=== PATIENT | female | born 1995 | race Caucasian/White ===

== ENCOUNTER → 2018-01-13 | Outpatient (CLI) | payer SELFPAY ==
--- NOTE | 2018-01-13 15:06 | RADIOLOGY REPORT (SQ) ---
EXAM DESCRIPTION: U/S [id number] TRNABD 1GES W/ODOP COMPLETED DATE/TIME: 01/13/2018 2:29 pm REASON FOR STUDY: ENCTR FOR SUPERVISION OF NORMAL , 1ST TRIMESTER (Z34.01) Z34.01 ENCNTR F OR SUPRVSN OF NORMAL FIRST PREG, FIRST TRIMES COMPARISON: None. TECHNIQUE: Transabdominal static and realtime grayscale images acquired of the pelvis. Additional se lected spectral and color Doppler images recorded. All images stored on PACs. bHCG: Not available CLINICAL DATES: Not available LIMITATIONS: None. FINDINGS: FETUS: Single Living intrauterine . ULTRASOUND EGA: 9 weeks 4 days ULTRASOUND ANETA: 08/14/2018 EFW: Not applicable less than 20 weeks. CRL: 2.7 cm FHR: 178 beats per minute. SURVEY: Too early to assess. AMNIOTIC FLUID: Adequate amount. PLACENTA: Developing fundus posterior. Placenta covers the internal os on today's study. Recommend repeat scanning sometime later in the 2nd trimester to evaluate for placenta previa SUBCHORIONIC BLEED: No SIZE OF BLEED: Not applicable. UTERUS: No masses. No anomalies. 10.5 x 8.4 x 10 cm in size CERVICAL LENGTH: 3.5 cm Closed. RIGHT ADNEXA: Normal ovary, 3.4 x 2.4 x 2.2 cm in size, with normal vascular flow. No adnexal free fluid. No adnexal masses. LEFT ADNEXA: Not well-visualized due to adnexal bowel gas. FREE FLUID: None. OTHER: No other significant finding. IMPRESSION: LIVING INTRAUTERINE . EGA 9 weeks 4 days. Placenta currently covers the internal cervical os. Recommend repeat scanning sometime later in the 2nd trimester to evaluate for placenta previa Trimester of : First - 0 to 13 weeks. TECHNICAL DOCUMENTATION: JOB ID: [id number] [employer]- All Rights Reserved rev Reading location - IP/workstation name: [facility]
== END ==
LOC: RAD 13:50
PROVIDERS: ATTEND Nurse Practitioner
DX: Z34.01 Encounter for supervision of normal first pregnancy, first trimester (principal)
CPT/HCPCS: 76801

== ENCOUNTER → 2018-02-23 | Outpatient (CLI) | payer SELFPAY ==
--- NOTE | 2018-02-23 14:25 | RADIOLOGY REPORT (SQ) ---
EXAM DESCRIPTION: U/S OB 14+ TRNABD 1GES W/O DOP COMPLETED DATE/TIME: 02/23/2018 2:00 pm REASON FOR STUDY: ENCTR FOR SUPERVISION OF NORMAL FIRST 2ND TRIMESTER (Z34.02) Z34.02 ENC NTR FOR SUPRVSN OF NORMAL FIRST PREG, SECOND TRIME COMPARISON: OB ultrasound 01/13/2018 TECHNIQUE: Static and Dynamic grayscale imaging performed of gravid uterus using transabdominal appr oach. Additional selected color Doppler and spectral images recorded. All stored on PACS. LIMITATIONS: None. FINDINGS: FETUSES SEEN:Single fetus EGA: 16 weeks 0 days Calculated using BPD,FL,HC,AC documented on images. No significant discrepanc y with clinical dates ANETA: By ultrasound estimated due date is 08/10/2018 EFW: 135 grams PERCENTILE: Not calculated KEEGAN: Adequate PLACENTA: Developing posteriorly GRADE: I PRESENTATION: Variable ANATOMY: HEART RATE: 178 beats per minute. FOUR CHAMBER HEART: Not well seen THREE VESSEL CORD: Not well seen CORD INSERTION: Visualized. KIDNEYS AND BLADDER: Kidneys unremarkable. Bladder visualized STOMACH: Visualized. Appears normal. SPINE: Normal as visualized. BRAIN AND LATERAL VENTRICLES: Visualized. Appear normal. OTHER: No other significant finding. MATERNAL ADNEXA: Maternal ovaries not visualized. CERVICAL LENGTH: Closed, 3.7 cm in length OTHER: No other significant finding. IMPRESSION: LIVING INTRAUTERINE . ESTIMATED GESTATIONAL AGE 16 weeks 0 days NO VISUALIZED ANOMALIES. Trimester of : Second trimester - 13 weeks 1 day to 27 weeks 6 days. TECHNICAL DOCUMENTATION: JOB ID: [id number] [employer]- All Rights Reserved Reading location - IP/workstation name: [facility]
== END ==
LOC: RAD 12:52
PROVIDERS: ATTEND Nurse Practitioner
DX: Z34.02 Encounter for supervision of normal first pregnancy, second trimester (principal)
CPT/HCPCS: 76805

== ENCOUNTER 2018-08-07 20:27 | Outpatient (CLI) | payer MEDICAID ==
[2018-08-07 22:22] LABS: APPEARANCE,URINE SLIGHTLY-CLOUDY; BILIRUBIN,URINE NEGATIVE (NEGATIVE); COLOR,URINE YELLOW; GLUCOSE, URINE NEGATIVE (NEGATIVE); KETONES,URINE NEGATIVE (NEGATIVE); LEUKOCYTE ESTERASE,URINE MODERATE (NEGATIVE); NITRITE,URINE NEGATIVE (NEGATIVE); PROTEIN,URINE NEGATIVE (NEGATIVE); URINE SPECIFIC GRAVITY 1.014; UROBILINOGEN,URINE NEGATIVE mg/dL (<2.0)
[2018-08-07 22:35] LABS: URINE AMPHETAMINES SCREEN NEGATIVE; URINE BARBITURATES SCREEN NEGATIVE; URINE BENZODIAZEPINES SCREEN NEGATIVE; URINE COCAINE SCREEN NEGATIVE; URINE METHADONE SCREEN NEGATIVE; URINE PHENCYCLIDINE SCREEN NEGATIVE
[2018-08-07 22:39] LABS: URINE MARIJUANA (THC) SCREEN NEGATIVE
== END 2018-08-07 23:02 | disposition home or self-care (01) ==
LOC: LC 20:27
PROVIDERS: ATTEND Obstetrics & Gynecology
PROC: 4A1HXCZ Monitoring of Products of Conception, Cardiac Rate, External Approach (ICD-10-PCS; principal; 2018-08-07)
DX: O26.893 Other specified pregnancy related conditions, third trimester (principal); Z3A.38 38 weeks gestation of pregnancy
CPT/HCPCS: 59025; 80307; 81001

== ENCOUNTER 2018-08-13 09:45 | Inpatient (IN) | payer MEDICAID ==
--- NOTE | 2018-08-13 09:48 | Non Stress Test Report ---
Non Stress Test Datetime Report Generated by CPN: 08/13/2018 09:48 DEMOGRAPHIC EGA NST: 38.6 INDICATION Indication for Study: Ordered by Provider URINE RESULTS Urine Protein, NST: Negative Urine Ketones - NST: Negative Urine Glucose - NST: Negative Urine Blood - NST: Negative MONITORING Monitor Explained: Monitor Explained; Test Explained; Patient Verbalized Understanding Time on Monitor: 08/07/2018 22:30 Time off Monitor: 08/07/2018 22:53 NST Duration: 23 NST INTERVENTIONS NST Interventions: PO Hydration Physician Notified NST: Dr. Younger BABY A: [id number] BABY A Movement : Present Contraction Frequency : Irregular FHR Baseline : 125 Accelerations : 15X15 Decelerations : None Variability : Moderate 6-25bpm NST Review: Meets Criteria for Reactive NST NST Review and Verified By : Kya Cooper RN NST Results: Reactive NST REPORT Report Trigger: Send Report
[2018-08-13 10:24] LABS: APPEARANCE,URINE SLIGHTLY-CLOUDY; BILIRUBIN,URINE NEGATIVE (NEGATIVE); COLOR,URINE YELLOW; GLUCOSE, URINE NEGATIVE (NEGATIVE); KETONES,URINE NEGATIVE (NEGATIVE); LEUKOCYTE ESTERASE,URINE MODERATE (NEGATIVE); NITRITE,URINE NEGATIVE (NEGATIVE); PROTEIN,URINE NEGATIVE (NEGATIVE); URINE SPECIFIC GRAVITY 1.008; UROBILINOGEN,URINE NEGATIVE mg/dL (<2.0)
[2018-08-13] MEDS ORDERED: RINGERS SOLUTION,LACTATED 1,000 ML IV PRN (10:32)
[2018-08-13] MEDS ORDERED: RINGERS SOLUTION,LACTATED 300 ML IV ONE (10:32)
[2018-08-13] MEDS ORDERED: OXYTOCIN/NORMAL SALINE 20 UNIT/1,000 ML RTUINJ IV PRN ×2 (10:32→14:58)
[2018-08-13] MEDS ORDERED: MISOPROSTOL 0.2 MG TABLET ONE (10:49)
[2018-08-13] MEDS ORDERED: LIDOCAINE 1% INJ-PF (10 MG/ML) 30 ML SDV ONE ×2 (10:49→14:37)
[2018-08-13] MEDS ORDERED: OXYTOCIN 10 UNIT/ML VIAL ONE (10:49)
[2018-08-13 10:50] LABS: URINE AMPHETAMINES SCREEN NEGATIVE; URINE BARBITURATES SCREEN NEGATIVE; URINE BENZODIAZEPINES SCREEN NEGATIVE; URINE COCAINE SCREEN NEGATIVE; URINE MARIJUANA (THC) SCREEN NEGATIVE; URINE METHADONE SCREEN NEGATIVE; URINE PHENCYCLIDINE SCREEN NEGATIVE
[2018-08-13] MEDS ORDERED: OXYTOCIN/NORMAL SALINE 20 UNIT/1,000 ML RTUINJ ONE (10:50)
[2018-08-13] MEDS ORDERED: NALBUPHINE HCL INJ 10 MG/1 ML AMPULE ONE (12:32)
[2018-08-13 13:05] LABS: ABSOLUTE LYMPHOCYTES (AUTO) 1.4 10^3/uL (0.5-4.7); ABSOLUTE MONOCYTES (AUTO) 0.7 10^3/uL (0.1-1.4); BASOPHILS % (AUTO) 0.5 % (0-2); EOSINOPHILS % (AUTO) 0.2 % (0-6); HEMATOCRIT 36.9 % (36.0-47.0); HEMOGLOBIN 12.7 g/dL (12.0-15.5); LYMPHOCYTES % (AUTO) 13.9 % (13-45); MEAN CORPUSCULAR HEMOGLOBIN 29.8 pg (27.0-33.4); MEAN CORPUSCULAR HGB CONC 34.4 g/dL (32.0-36.0); MEAN CORPUSCULAR VOLUME 87 fl (80-97); MONOCYTES % (AUTO) 6.5 % (3-13); RED BLOOD COUNT 4.26 10^6/uL (3.72-5.28); RED CELL DISTRIBUTION WIDTH 14.3 % (11.5-14.0); SEGMENTED NEUTROPHILS % (AUTO) 78.9 % (42-78); TOTAL CELLS COUNTED % (AUTO) 100 %; WHITE BLOOD COUNT 10.2 10^3/uL (4.0-10.5)
[2018-08-13 13:29] LABS: PLATELET COUNT 73 10^3/uL (150-450)
[2018-08-13] MEDS ORDERED: EPHEDRINE SULFATE INJ 50 MG/1 ML AMPULE ONE (13:54)
[2018-08-13] MEDS ORDERED: BUPIVACAINE HCL 0.25 % INJ/PF (2.5 MG/1 ML) 30 ML VIAL ONE (13:54)
[2018-08-13] MEDS ORDERED: FENTANYL/BUPIVACAINE/NS/PF 0 MCG/0 ML RTUINJ EPI ONE (13:54)
[2018-08-13] MEDS ORDERED: METHYLERGONOVINE MALEATE INJ/PF 0.2 MG/1 ML AMPULE ONE (14:10)
--- NOTE | 2018-08-13 14:52 | Admission Physical ---
Datetime Report Generated by CPN: 08/13/2018 14:52 CURRENT ADMISSION Chief Complaint: Uterine Contractions Indication for Induction: Not Applicable Admit Impression : Term, Intrauterine Admit Plan: Admit to Unit ALLERGIES Medication Allergies: No Medication Allergies: No Known Allergies (08/13/2018) Latex: No Latex Allergies OBSTETRICAL HISTORY EDC: 08/15/2018 00:00 : 1 Para: 0 Term: 0 : 0 SAB: 0 IAB: 0 Ectopic: 0 Livin Cesareans: 0 VBACs: 0 Multiple Births: 0 Gestational Diabetes: No Rh Sensitization: No Incompetent Cervix: No KATY: No Infertility: No ART Treatment: No Uterine Anomaly: No IUGR: No Hx Previous C/S: No Macrosomia: No Hx Loss/Stillborn: Yes PIH: No Hx : No Placenta Previa/Abruption: No Depression/PP Depression: No PTL/PROM: No Post Hemorrhage: No Current Procedures: Ultrasound Obstetrical History Comments: G1: current (no issues) SEE RECORDS Alcohol: No Marijuana : No Cocaine: No Other Illicit Drugs: No Cigarettes: Never Smoker. [id number] MEDICAL HISTORY Diabetes: No Blood Transfusion: No Pulmonary Disease (Asthma, TB): No Breast Disease: No Hypertension: No Management Engineer Surgery: No Heart Disease: No Hosp/Surgery: No Autoimmune Disorder: No Anesthetic Complications: No Kidney Disease: Yes Abnormal Pap Smear: No Neuro/Epilepsy: No Psychiatric Disorders: No Other Medical Diseases: No Hepatitis/Liver Disease: No Significant Family History: No Varicosities/Phlebitis: No Trauma/Violence : No Thyroid Dysfunction: No Medical History Comments: UTI in once INFECTIOUS HISTORY Gonorrhea: No Genital Herpes: No Chlamydia: No Tuberculosis: No Syphilis: No Hepatitis: No HIV/AIDS Exposure: No Rash or Viral Illness: No HPV: No Infectious History Comments: denies PHYSICAL EXAM General: Normal HEENT: Normal Neurologic: Normal Thyroid: Normal Heart: Normal Lungs: Normal Breast: Deferred Back: Normal Abdomen: Normal Genitourinary Exam: Normal Extremities: Normal DTRs: Normal Pelvic Type: Adequate FETUS A EGA: 39.5 PLANS FOR LABOR AND DELIVERY Labor and Delivery: None Pain Management: Epidural Feeding Preference: Both Benefit of Breast Feed Discussed: Yes Circumcision: Yes INFORMED CONSENT Signature: with User ID: [email or web address]
[2018-08-13] MEDS ORDERED: BENZOCAINE/MENTHOL AEROSOL SPRAY 56 ML TOP PRN (14:58)
[2018-08-13] MEDS ORDERED: ACETAMINOPHEN 650 MG SUPP.RECT PR PRN (14:58)
[2018-08-13] MEDS ORDERED: MEASLES,MUMPS&RUBELLA VACC/PF 0.5 ML VIAL SUBCUT PRN (14:58)
[2018-08-13] MEDS ORDERED: PROMETHAZINE HCL INJ 25 MG/1 ML VIAL IV PRN (14:58)
[2018-08-13] MEDS ORDERED: PROMETHAZINE HCL 25 MG TABLET PO PRN (14:58)
[2018-08-13] MEDS ORDERED: GLYCERIN/WITCH HAZEL LEAF 1 EACH MED..WIPE TP PRN (14:58)
[2018-08-13] MEDS ORDERED: PSEUDOEPHEDRINE HCL 30 MG TABLET PO PRN (14:58)
[2018-08-13] MEDS ORDERED: DIBUCAINE 1% OINTMENT 56 GM TP PRN (14:58)
[2018-08-13] MEDS ORDERED: DIPH/PERTUSS(ACELL)/TETANUS VAC/PF 0.5 ML SYR (>=10YO) IM PRN (14:58)
[2018-08-13] MEDS ORDERED: ZOLPIDEM TARTRATE 5 MG TABLET PO PRN (14:58)
[2018-08-13] MEDS ORDERED: NA PHOS,M-B/NA PHOS,DI-BA (ADULT) 133 ML ENEMA PR PRN (14:58)
[2018-08-13] MEDS ORDERED: DIPHENHYDRAMINE HCL 25 MG CAPSULE PO PRN (14:58)
[2018-08-13] MEDS ORDERED: MAGNESIUM HYDROXIDE SUSP 30 ML UDCUP PO PRN (14:58)
[2018-08-13] MEDS ORDERED: PROMETHAZINE HCL 25 MG SUPP.RECT PR PRN (14:58)
[2018-08-13] MEDS ORDERED: ACETAMINOPHEN WITH CODEINE #3 TABLET ONE (15:46)
[2018-08-13] MEDS: ACETAMINOPHEN WITH CODEINE #3 TABLET PO PRN ×2 (15:50→20:02)
--- NOTE | 2018-08-13 16:36 | Delivery Summary ---
Del Sum A-C Datetime Report Generated by CPN: 08/13/2018 16:35 DELIVERY PERSONNEL DELIVERY PERSONNEL: [id number] Delivery Doctor:: Anderson Galicia MD Labor and Delivery Nurse:: Lexis Heredia RNpowerhouse mechanic supervisor Nurse:: Juana Ramey RN Engineering And Scientific Programmer:: Lexie Segura RN Nursery Nurse:: Megan Caballero RN Nursery Nurse:: Radha Magaña RN Sfdc Developer/FLOORING SALES MANAGER: hCarity Ronquillo RELATIONS MANAGER Sfdc Developer/FLOORING SALES MANAGER: Vanessa Virk, RELATIONS MANAGER MATERNAL INFORMATION Delivery Anesthesia: None Medications After Delivery: Pitocin Bolus-Please Comment; Methergine 0.2mg IM; Cytotec 1000mcg Per Rectum/Vagina Meds After Delivery Comment: Pitocin 20 units in 1 L NS bolusing per order Maternal Complications: None LABOR SUMMARY EDC: 08/15/2018 00:00 No. Babies in Womb: 1 Attempted: No Labor Anesthesia: IV Sedation LABOR INFORMATION Reason for Induction: Not Applicable Onset of Labor: 08/13/2018 04:00 Complete Dilatation: 08/13/2018 14:07 Oxytocin: Augmentation Group B Beta Strep: negative Antibiotics # of Doses: 0 Antibiotics Time of Last Dose: n/a Name of Antibiotic Given: n/a Steroids Given: None Reason Steroids Not Administered: Not Applicable MEMBRANES Membranes Rupture Method: Spontaneous Rupture of Membranes: 08/13/2018 14:14 Length of Rupture (hr): 0.27 Amniotic Fluid Color: Clear Amniotic Fluid Amount: Moderate Amniotic Fluid Odor: Normal STAGES OF LABOR Stage 1 hr: 10 Stage 1 min: 7 Stage 2 hr: 0 Stage 2 min: 23 Stage 3 hr: 0 Stage 3 min: 5 Total Time in Labor hr: 10 Total Time in Labor min: 35 VAGINAL DELIVERY Episiotomy: None Laceration #1: Perineal Laceration Extension #1: Third Degree, IIIc (Both ext and int anal sphincter torn) Laceration Repair: Yes Laceration Repair Note: muscel repaired in three layers and other repaired in usual fashion with 2-0 vicryl Sponge Count Correct: Yes Sharps Count Correct: Yes CSECTION DELIVERY Primary Indication: N/A Secondary Indication: N/A CSection Incidence: N/A Labor: N/A Elective: N/A CSection Incision: N/A BABY A INFORMATION Infant Delivery Date/Time: 08/13/2018 14:30 Method of Delivery: Vaginal Born in Route : No : N/A Forceps: N/A Vacuum Extraction: N/A Shoulder Dystocia : No PRESENTATION/POSITION BABY A Presentation: Cephalic Cephalic Presentation: Vertex Vertex Position: Right Occipital Anterior Breech Presentation: N/A PLACENTA INFORMATION BABY A Placenta Delivery Time : 08/13/2018 14:35 Placenta Method of Delivery: Spontaneous Placenta Status: Delivered SCORES BABY A Heart Rate 1 min: >100 bpm Resp Effort 1 min: Good Cry Reflex Irritability 1 min: Cough or Sneeze or Pulls Away Muscle Tone 1 min: Active Motion Color 1 min: Blue/Pale Resuscitation Effort 1 min: Tactile Stimulation SCORE 1 MIN: 8 Heart Rate 5 min: >100 bpm Resp Effort 5 min: Good Cry Reflex Irritability 5 min: Cough or Sneeze or Pulls Away Muscle Tone 5 min: Active Motion Color 5 min: Blue/Pale Resuscitation Effort 5 min: N/A SCORE 5 MIN: 8 INFANT INFORMATION BABY A Gestational Age at Delivery: 39.5 Gestational Status: Full Term- 39- 40.6 Weeks Outcome : Liveborn Infant Condition : Stable Sex: Male IDENTIFICATION BABY A Verification Date/Time: 08/13/2018 15:19 ID Band Number: [id number] Mother's Name Verified: Yes RN Verifying : J, RN and M.Tanvir, RN WEIGHT/LENGTH BABY A Birthweight (gm): 4199 Infant Weight (lb): 9 Weight (oz): 4 Infant Length (in): 21.25 Length (cm): 53.98 CORD INFORMATION BABY A No. Cord Vessels: 3 Nuchal Cord : Around Neck x1, Loose Cord Blood Taken: Yes-For Storage (Mom's Blood type +) Suction: Mouth; Nose ASSESSMENT BABY A Complications: None Physical Findings at Delivery: Within Normal Limits Infant Respirations: Appears Normal Skin to Skin: Yes Care By: H. Ada, RN, K. Crimm, RN Transferred To: Remains with Mother BABY B INFORMATION : N/A SIGNATURES Signature: with User ID: [email or web address]
[2018-08-13] MEDS: DOCUSATE SODIUM 100 MG CAPSULE PO SCH (18:13)
[2018-08-13] MEDS: FERROUS SULFATE 325 MG TABLET PO SCH (18:13)
[2018-08-14] MEDS ORDERED: DEXTROSE 5%-LACTATED RINGERS 1,000 ML IV ONE (00:30)
[2018-08-14] MEDS: FAMOTIDINE 20 MG TABLET PO SCH ×3 (00:42→22:51)
[2018-08-14] MEDS: IBUPROFEN 800 MG TABLET PO SCH ×3 (00:42→13:22)
[2018-08-14 00:43] LABS: HEMATOCRIT 29.6 % (36.0-47.0); MEAN CORPUSCULAR HEMOGLOBIN 30.2 pg (27.0-33.4); MEAN CORPUSCULAR VOLUME 86 fl (80-97); RED BLOOD COUNT 3.43 10^6/uL (3.72-5.28); RED CELL DISTRIBUTION WIDTH 14.2 % (11.5-14.0); WHITE BLOOD COUNT 13.2 10^3/uL (4.0-10.5)
[2018-08-14 00:48] LABS: HEMOGLOBIN 10.4 g/dL (12.0-15.5)
[2018-08-14 00:49] LABS: PLATELET COUNT 79 10^3/uL (150-450)
[2018-08-14] MEDS: ACETAMINOPHEN WITH CODEINE #3 TABLET PO PRN ×4 (00:51→22:17)
[2018-08-14] MEDS ORDERED: RINGERS SOLUTION,LACTATED 1,000 ML IV PRN (01:37)
[2018-08-14] MEDS ORDERED: TRANEXAMIC ACID 1,000 MG in DEXTROSE 5%-WATER 50 ML IV ONE (01:45)
[2018-08-14] MEDS ORDERED: METHYLERGONOVINE MALEATE INJ/PF 0.2 MG/1 ML AMPULE IM ONE (01:45)
[2018-08-14] MEDS ORDERED: TRANEXAMIC ACID INJ/PF 1,000 MG/10 ML SDV IV ONE (01:47)
[2018-08-14] MEDS: METHYLERGONOVINE MALEATE INJ/PF 0.2 MG/1 ML AMPULE IM SCH ×2 (06:38→12:15)
[2018-08-14 07:31] LABS: HEMATOCRIT 29.5 % (36.0-47.0); HEMOGLOBIN 10.2 g/dL (12.0-15.5); MEAN CORPUSCULAR HEMOGLOBIN 30.1 pg (27.0-33.4); MEAN CORPUSCULAR HGB CONC 34.6 g/dL (32.0-36.0); MEAN CORPUSCULAR VOLUME 87 fl (80-97); RED BLOOD COUNT 3.39 10^6/uL (3.72-5.28); RED CELL DISTRIBUTION WIDTH 14.2 % (11.5-14.0); WHITE BLOOD COUNT 13.3 10^3/uL (4.0-10.5)
[2018-08-14 07:50] LABS: PLATELET COUNT 75 10^3/uL (150-450)
[2018-08-14] MEDS: FERROUS SULFATE 325 MG TABLET PO SCH ×2 (10:09→18:31)
[2018-08-14] MEDS: SENNOSIDES/DOCUSATE 8.6-50 MG 1 EACH TABLET PO SCH (10:09)
[2018-08-14] MEDS: DOCUSATE SODIUM 100 MG CAPSULE PO SCH ×2 (10:09→18:32)
[2018-08-14] MEDS: PRENATAL VITAMIN W DHA CAPSULE PO SCH (10:10)
--- NOTE | 2018-08-14 12:46 | PDOC PROGRESS REPORT ---
Subjective-OB Progress Note for:: 08/14/18 Subjective: Pt doing well, no concerns. She is bleeding lightly, no large clots but steady trickle. Bonding with baby. Family at bedside. Physical Exam (OB) Vital Signs: Temp Pulse Resp BP Pulse Ox 98.1 F 89 16 129/70 H 100 08/14/18 08:13 08/14/18 08:13 08/14/18 08:13 08/14/18 08:13 08/14/18 08:13 Intake & Output 08/13/18 08/14/18 08/15/18 06:59 06:59 06:59 Intake Total 300 1000 Balance 300 1000 Weight 74.4 kg - PIH/Pre-Eclampsia Clonus: Negative Headache: Absent Epigastric Pain: No Visual Changes: No - Lochia Lochia Amount: Small 10-25 ml Lochia Color: Rubra/Red - Abdomen Description: Tender, Soft, Round Hernia Present: No Fundal Description: Firm, Midline Fundal Height: u/u - u/2 - Genitourinary Female External exam: Laceration, Bruising Lochia: Mild Objective-Diagnostic Laboratory: 08/14/18 06:28 08/13/18 08/14/18 08/14/18 12:43 00:31 06:28 WBC 10.2 13.2 H 13.3 H RBC 4.26 3.43 L 3.39 L Hgb 12.7 10.4 L D 10.2 L Hct 36.9 29.6 L 29.5 L MCV 87 86 87 MCH 29.8 30.2 30.1 MCHC 34.4 35.0 34.6 RDW 14.3 H 14.2 H 14.2 H Plt Count 73 L 79 L 75 L Seg Neutrophils % 78.9 H Lymphocytes % 13.9 Monocytes % 6.5 Eosinophils % 0.2 Basophils % 0.5 Absolute Neutrophils 8.0 Absolute Lymphocytes 1.4 Absolute Monocytes 0.7 Absolute Eosinophils 0.0 Absolute Basophils 0.0 Assessment and Plan(PN) - Assessment and Plan (1) Vaginal delivery Is this a current diagnosis for this admission?: Yes (2) Third degree laceration of perineum, type 3c Is this a current diagnosis for this admission?: Yes - Time Spent with Patient Time with patient: Less than 15 minutes Medications reviewed and adjusted accordingly: Yes - Disposition Anticipated Discharge: Home Within: within 24 hours, within 48 hours
[2018-08-15 07:40] VITALS: BP 111/68
--- NOTE | 2018-08-15 10:36 | PDOC DISCHARGE SUMMARY ---
Final Diagnosis Discharge Date: 08/15/18 - Final Diagnosis (1) Vaginal delivery Is this a current diagnosis for this admission?: Yes (2) Third degree laceration of perineum, type 3c Is this a current diagnosis for this admission?: Yes (3) Thrombocytopenia Is this a current diagnosis for this admission?: Yes Discharge Data - Discharge Medication Home Medications: Ferrous Sulfate [Iron] 1 tab PO DAILY 08/13/18 Pantoprazole Sodium [Protonix [address] Tablet] 20 mg PO QAM 08/13/18 Pnv No.95/Ferrous Fum/Folic AC [ Vitamin Tablet] 1 tab PO DAILY 08/13/18 Reason(s) for Admission: Onset of Labor Procedures: NST Intrapartum Procedure(s): Spontaneous Vaginal Delivery Complication(s): Laceration-Perineal Laceration-Degree: 3rd - Diagnosis Test Laboratory: Temp Pulse Resp BP Pulse Ox 97.8 F 75 18 111/68 98 08/15/18 10:16 08/15/18 10:16 08/15/18 10:16 08/15/18 07:38 08/15/18 10:16 08/13/18 08/13/18 08/13/18 09:58 10:45 12:43 RBC Cancelled 4.26 Hgb Cancelled 12.7 Hct Cancelled 36.9 Urine Opiates Screen NEGATIVE 08/14/18 08/14/18 00:31 06:28 RBC 3.43 L 3.39 L Hgb 10.4 L D 10.2 L Hct 29.6 L 29.5 L Urine Opiates Screen - Discharge information/Instructions Discharge Activity: Balance Activity w/Rest, Pelvic Rest, No tub bath Discharge Diet: Regular Disposition: HOME, SELF-CARE Follow up with: [facility] in: 4, Days
[2018-08-15] MEDS: DOCUSATE SODIUM 100 MG CAPSULE PO SCH (11:10)
[2018-08-15] MEDS: FERROUS SULFATE 325 MG TABLET PO SCH (11:10)
[2018-08-15] MEDS: FAMOTIDINE 20 MG TABLET PO SCH (11:10)
[2018-08-15] MEDS: SENNOSIDES/DOCUSATE 8.6-50 MG 1 EACH TABLET PO SCH (11:11)
[2018-08-15] MEDS: PRENATAL VITAMIN W DHA CAPSULE PO SCH (11:11)
== END 2018-08-15 15:07 | disposition home or self-care (01) | DRG 768 ==
LOC: LC 09:45 → LR 10:30 → 2S 16:54
PROVIDERS: ADMIT Obstetrics & Gynecology Gynecology; ATTEND Obstetrics & Gynecology Gynecology
PROC: 10E0XZZ Delivery of Products of Conception, External Approach (ICD-10-PCS; principal; 2018-08-13)
PROC: 0DQR0ZZ Repair Anal Sphincter, Open Approach (ICD-10-PCS; 2018-08-13)
DX: O70.23 Third degree perineal laceration during delivery, IIIc (principal); Z37.0 Single live birth; O99.12 Other diseases of the blood and blood-forming organs and certain disorders involving the immune mechanism complicating childbirth; O69.81X0 Labor and delivery complicated by cord around neck, without compression, not applicable or unspecified; Z3A.39 39 weeks gestation of pregnancy; D69.6 Thrombocytopenia, unspecified
CPT/HCPCS: 36415; 80307; 81005; 84112; 85025; 85027; 86592; 86850; 86900; 86901; J2210; J2300; J2590; J3010; J3490; J7060; J7120; J7121